=== PATIENT | male | born 1950 | race Native Hawaiian/Other Pacific Islander ===

== ENCOUNTER 2020-12-27 12:16 | Inpatient (IN) | payer OTHER, BC | END 2021-01-01 10:18 | disposition still patient (30) | LOC: PAVC 12:16 | PROVIDERS: ADMIT Internal Medicine; ATTEND Internal Medicine | DX: I21.4 Non-ST elevation (NSTEMI) myocardial infarction (principal); R13.12 Dysphagia, oropharyngeal phase; R48.8 Other symbolic dysfunctions; M62.81 Muscle weakness (generalized); R27.8 Other lack of coordination; Z74.1 Need for assistance with personal care; R26.81 Unsteadiness on feet | CPT/HCPCS: 87081 ==

== ENCOUNTER 2020-12-29 23:11 | Emergency (ER) | payer OTHER, BC ==
[~2020-12-29] VITALS: Ht 180.3 cm; Wt 89.4 kg
[2020-12-29 23:48] LABS: POTASSIUM 3.4 mmol/L (3.6-5.2)
[2020-12-29 23:51] LABS: PLATELET COUNT 354 K/uL (142-355)
[2020-12-29 23:59] LABS: PARTIAL THROMBOPLASTIN TIME 23.2 SECONDS (24.5-33.6)
[2020-12-30 01:18] VITALS: BP 111/78; TEMP 98.1
== END 2020-12-30 01:18 ==
LOC: ED 23:11
PROVIDERS: Hospitalist
DX: F03.91 Unspecified dementia, unspecified severity, with behavioral disturbance (principal)
CPT/HCPCS: 36415; 80053; 81000; 82550; 83880; 84484; 85027; 85610; 85730; 93005; 99283

== ENCOUNTER 2021-01-01 11:17 | Inpatient (IN) | payer OTHER, BC ==
[2021-01-08] MEDS ORDERED: ZINC220 MG PO (21:34)
[2021-01-08] MEDS ORDERED: FAMOTIDINE20 MG PO (21:35)
[2021-01-08] MEDS ORDERED: CLOPIDOGREL75 MG PO (21:36)
[2021-01-08] MEDS ORDERED: METF100038 PO (21:37)
[2021-01-08] MEDS ORDERED: MULTIVITAMI1 PO (21:37)
[2021-01-08] MEDS ORDERED: ASPIRIN81 M1 PO (21:38)
[2021-01-08] MEDS ORDERED: LIPITOR80 MG PO (21:39)
[2021-01-08] MEDS ORDERED: TAMSULOSIN0.4 MG PO (21:40)
[2021-01-08] MEDS ORDERED: VITAMIN C PO (21:43)
[2021-01-08] MEDS ORDERED: QUET25TA2 PO (21:46)
[2021-01-08] MEDS ORDERED: SENNOSIDES8.6 MG PO (21:47)
[2021-01-08] MEDS ORDERED: GERI-TUSSI100 MG/51 PO (21:48)
[2021-01-08] MEDS ORDERED: [UNRECOGNIZED DRUG - CODE] PO (21:49)
[2021-01-08] MEDS ORDERED: TROCHIBASE PO (21:50)
[2021-01-08] MEDS ORDERED: PAIN RELIEF325 MG PO (21:53)
[2021-01-08] MEDS ORDERED: ALBUTEROL SULFATE INH (21:56)
[2021-01-19] MEDS ORDERED: SILV1CRE TOP (10:08)
[2021-01-19] MEDS ORDERED: RISP0.25 PO (10:08)
[2021-01-19] MEDS ORDERED: ESCI10TA PO (10:08)
== END 2021-01-31 11:20 | disposition still patient (30) ==
LOC: PAVC 11:17
PROVIDERS: ADMIT Internal Medicine; ATTEND Internal Medicine
DX: I21.4 Non-ST elevation (NSTEMI) myocardial infarction (principal); R13.12 Dysphagia, oropharyngeal phase; R48.8 Other symbolic dysfunctions; M62.81 Muscle weakness (generalized); R27.8 Other lack of coordination; Z74.1 Need for assistance with personal care; R26.81 Unsteadiness on feet
CPT/HCPCS: 80053; 80061; 82306; 82607; 82728; 82746; 83036; 83540; 84153; 84443; 85027

== ENCOUNTER 2021-01-08 18:22 | Emergency (ER) | payer OTHER, BC ==
[~2021-01-08] VITALS: Ht 180.3 cm; Wt 86.7 kg
[2021-01-08 18:45] LABS: PLATELET COUNT 273 K/uL (142-355)
[2021-01-08 18:59] LABS: POTASSIUM 3.2 mmol/L (3.6-5.2)
[2021-01-08 20:45] VITALS: BP 129/88; TEMP 97.3
[2021-01-08] MEDS ORDERED: ZINC220 MG PO (21:34)
[2021-01-08] MEDS ORDERED: FAMOTIDINE20 MG PO (21:35)
[2021-01-08] MEDS ORDERED: CLOPIDOGREL75 MG PO (21:36)
[2021-01-08] MEDS ORDERED: METF100038 PO (21:37)
[2021-01-08] MEDS ORDERED: MULTIVITAMI1 PO (21:37)
[2021-01-08] MEDS ORDERED: ASPIRIN81 M1 PO (21:38)
[2021-01-08] MEDS ORDERED: LIPITOR80 MG PO (21:39)
[2021-01-08] MEDS ORDERED: TAMSULOSIN0.4 MG PO (21:40)
[2021-01-08] MEDS ORDERED: VITAMIN C PO (21:43)
[2021-01-08] MEDS ORDERED: QUET25TA2 PO (21:46)
[2021-01-08] MEDS ORDERED: SENNOSIDES8.6 MG PO (21:47)
[2021-01-08] MEDS ORDERED: GERI-TUSSI100 MG/51 PO (21:48)
[2021-01-08] MEDS ORDERED: [UNRECOGNIZED DRUG - CODE] PO (21:49)
[2021-01-08] MEDS ORDERED: TROCHIBASE PO (21:50)
[2021-01-08] MEDS ORDERED: PAIN RELIEF325 MG PO (21:53)
[2021-01-08] MEDS ORDERED: ALBUTEROL SULFATE INH (21:56)
== END 2021-01-08 20:52 | disposition still patient (30) ==
LOC: ED 18:22
PROVIDERS: Emergency Medicine
DX: G30.8 Other Alzheimer's disease (principal); F02.80 Dementia in other diseases classified elsewhere, unspecified severity, without behavioral disturbance, psychotic disturbance, mood disturbance, and anxiety; R45.1 Restlessness and agitation; E87.6 Hypokalemia; Z11.52 Encounter for screening for COVID-19; Z04.6 Encounter for general psychiatric examination, requested by authority; Z86.16 Personal history of COVID-19
CPT/HCPCS: 36415; 80053; 85027; 87635; 93005; 99285; U0003

== ENCOUNTER 2021-03-03 09:39 | Inpatient (IN) | payer OTHER, BC ==
[~2021-03-03 09:39] MED LIST: ALBUTEROL SULFATE INH; ASPIRIN81 M1 PO; CLOPIDOGREL75 MG PO; ESCI10TA PO; FAMOTIDINE20 MG PO; GERI-TUSSI100 MG/51 PO; LIPITOR80 MG PO; METF100038 PO; MULTIVITAMI1 PO; PAIN RELIEF325 MG PO; QUET25TA2 PO; RISP0.25 PO; SENNOSIDES8.6 MG PO; SILV1CRE TOP; TAMSULOSIN0.4 MG PO; TROCHIBASE PO; VITAMIN C PO; ZINC220 MG PO; [UNRECOGNIZED DRUG - CODE] PO
== END 2021-04-03 09:00 | disposition still patient (30) ==
LOC: PAVC 09:39
PROVIDERS: ADMIT Internal Medicine; ATTEND Internal Medicine
DX: I21.4 Non-ST elevation (NSTEMI) myocardial infarction (principal); R48.8 Other symbolic dysfunctions; M62.81 Muscle weakness (generalized); Z74.1 Need for assistance with personal care; R26.81 Unsteadiness on feet; G30.9 Alzheimer's disease, unspecified

== ENCOUNTER 2021-04-03 08:09 | Outpatient (CLI) | payer OTHER, BC | END 2021-04-03 19:25 | disposition home or self-care (01) | LOC: LAB 08:09 | PROVIDERS: ATTEND Internal Medicine | DX: E11.9 Type 2 diabetes mellitus without complications (principal) | CPT/HCPCS: 83036 ==

== ENCOUNTER 2021-04-03 13:39 | Inpatient (IN) | payer OTHER | END 2021-05-01 09:11 | disposition still patient (30) | LOC: PAVC 13:39 | PROVIDERS: ADMIT Internal Medicine; ATTEND Internal Medicine ==

== ENCOUNTER 2021-05-01 14:41 | Inpatient (IN) | payer OTHER | END 2021-06-01 14:15 | disposition still patient (30) | LOC: PAVC 14:41 | PROVIDERS: ADMIT Internal Medicine; ATTEND Internal Medicine ==

== ENCOUNTER 2021-06-01 15:37 | Inpatient (IN) | payer OTHER | END 2021-07-01 10:43 | disposition still patient (30) | LOC: PAVC 15:37 | PROVIDERS: ADMIT Internal Medicine; ATTEND Internal Medicine ==

== ENCOUNTER 2021-07-01 04:32 | Inpatient (IN) | payer OTHER | END 2021-08-01 10:03 | disposition still patient (30) | LOC: PAVC 04:32 | PROVIDERS: ADMIT Internal Medicine; ATTEND Internal Medicine ==

== ENCOUNTER 2021-07-02 08:12 | Outpatient (CLI) | payer OTHER, BC ==
[2021-07-02 08:35] LABS: PLATELET COUNT 278 K/uL (142-355)
[2021-07-02 09:08] LABS: POTASSIUM 4.4 mmol/L (3.6-5.2)
== END 2021-07-02 18:53 | disposition home or self-care (01) ==
LOC: LAB 08:12
PROVIDERS: ATTEND Internal Medicine
DX: I10 Essential (primary) hypertension (principal); I21.4 Non-ST elevation (NSTEMI) myocardial infarction; E11.9 Type 2 diabetes mellitus without complications
CPT/HCPCS: 80053; 82728; 83036; 83540; 85027

== ENCOUNTER 2021-07-17 15:36 | Outpatient (CLI) | payer OTHER, BC | END 2021-07-17 19:07 | disposition home or self-care (01) | LOC: CT 15:36 | PROVIDERS: ATTEND Internal Medicine | DX: H53.2 Diplopia (principal) ==

== ENCOUNTER 2021-08-01 16:30 | Inpatient (IN) | payer OTHER | END 2021-08-31 09:18 | disposition still patient (30) | LOC: PAVC 16:30 | PROVIDERS: ADMIT Internal Medicine; ATTEND Internal Medicine ==

== ENCOUNTER 2021-08-31 13:32 | Inpatient (IN) | payer OTHER | END 2021-10-01 09:13 | disposition still patient (30) | LOC: PAVC 13:32 | PROVIDERS: ADMIT Internal Medicine; ATTEND Internal Medicine ==

== ENCOUNTER 2021-10-01 07:13 | Outpatient (CLI) | payer OTHER | END 2021-10-01 18:53 | disposition home or self-care (01) | LOC: LAB 07:13 | PROVIDERS: ATTEND Internal Medicine | DX: E11.9 Type 2 diabetes mellitus without complications (principal) | CPT/HCPCS: 83036 ==

== ENCOUNTER 2021-10-01 11:09 | Inpatient (IN) | payer OTHER, BC ==
[2021-10-17] MEDS ORDERED: CEFD300C2 PO (18:51)
[2021-10-18] MEDS ORDERED: ZYPREXA ZYDI5 MG PO (18:48)
[2021-10-18] MEDS ORDERED: CLOP75TA2 PO (18:57)
[2021-10-18] MEDS ORDERED: METFORMIN HYD1000 MG PO (18:59)
[2021-10-18] MEDS ORDERED: ESCITALOPRAM10 MG PO (19:02)
[2021-10-18] MEDS ORDERED: MULTIVITAMI1 PO (19:05)
[2021-10-18] MEDS ORDERED: FAMO20TA4 PO (19:11)
[2021-10-18] MEDS ORDERED: LORA1TAB17 PO (19:14)
[2021-10-18] MEDS ORDERED: MILK OF MA400 MG/5 M PO (19:17)
[2021-10-18] MEDS ORDERED: ASPIRIN/ENTERIC81 MG PO (19:19)
[2021-10-18] MEDS ORDERED: LIPITOR80 MG PO (19:20)
[2021-10-18] MEDS ORDERED: BUMETANIDE1 MG PO (19:22)
[2021-10-21] MEDS ORDERED: CEFD300C2 PO (11:05)
[2021-10-22 09:05] LABS: POTASSIUM 3.5 mmol/L (3.6-5.2)
== END 2021-11-01 09:16 | disposition still patient (30) ==
LOC: PAVC 11:09
PROVIDERS: ADMIT Internal Medicine; ATTEND Internal Medicine
DX: N39.0 Urinary tract infection, site not specified (principal); M62.81 Muscle weakness (generalized); R26.81 Unsteadiness on feet; Z74.1 Need for assistance with personal care; R48.8 Other symbolic dysfunctions
CPT/HCPCS: 80048; 83880

== ENCOUNTER 2021-10-17 18:43 | Outpatient (CLI) | payer OTHER, BC ==
[2021-10-17] MEDS ORDERED: CEFD300C2 PO (18:51)
[2021-10-17 19:15] LABS: PLATELET COUNT 265 K/uL (142-355)
[2021-10-17 19:25] LABS: POTASSIUM 4.6 mmol/L (3.6-5.2)
[2021-10-18] MEDS ORDERED: ZYPREXA ZYDI5 MG PO (18:48)
[2021-10-18] MEDS ORDERED: CLOP75TA2 PO (18:57)
[2021-10-18] MEDS ORDERED: METFORMIN HYD1000 MG PO (18:59)
[2021-10-18] MEDS ORDERED: ESCITALOPRAM10 MG PO (19:02)
[2021-10-18] MEDS ORDERED: MULTIVITAMI1 PO (19:05)
[2021-10-18] MEDS ORDERED: FAMO20TA4 PO (19:11)
[2021-10-18] MEDS ORDERED: LORA1TAB17 PO (19:14)
[2021-10-18] MEDS ORDERED: MILK OF MA400 MG/5 M PO (19:17)
[2021-10-18] MEDS ORDERED: ASPIRIN/ENTERIC81 MG PO (19:19)
[2021-10-18] MEDS ORDERED: LIPITOR80 MG PO (19:20)
[2021-10-18] MEDS ORDERED: BUMETANIDE1 MG PO (19:22)
== END 2021-10-17 20:04 | disposition home or self-care (01) ==
LOC: LAB 18:43
PROVIDERS: ATTEND Internal Medicine Endocrinology, Diabetes & Metabolism
DX: I63.9 Cerebral infarction, unspecified (principal); I21.4 Non-ST elevation (NSTEMI) myocardial infarction; R41.82 Altered mental status, unspecified; R60.0 Localized edema
CPT/HCPCS: 80053; 83880; 85027; 85379

== ENCOUNTER 2021-10-18 11:07 | Inpatient (IN) | payer OTHER, BC ==
[2021-10-18] VITALS (10 sets, daily range): BP systolic 94–143; BP diastolic 42–93; TEMP 97.3–99; Ht 177.8 cm; Wt 83.2 kg
[~2021-10-18] VITALS: Ht 177.8 cm; Wt 83.2 kg
[~2021-10-18 11:07] MED LIST changes: +CEFD300C2 PO
[2021-10-18 12:15] LABS: PLATELET COUNT 273 K/uL (142-355)
[2021-10-18 12:25] LABS: POTASSIUM 4.1 mmol/L (3.6-5.2)
[2021-10-18] MEDS ORDERED: ZYPREXA ZYDI5 MG PO (18:48)
[2021-10-18] MEDS ORDERED: CLOP75TA2 PO (18:57)
[2021-10-18] MEDS ORDERED: METFORMIN HYD1000 MG PO (18:59)
[2021-10-18] MEDS ORDERED: ESCITALOPRAM10 MG PO (19:02)
[2021-10-18] MEDS ORDERED: MULTIVITAMI1 PO (19:05)
[2021-10-18] MEDS ORDERED: FAMO20TA4 PO (19:11)
[2021-10-18] MEDS ORDERED: LORA1TAB17 PO (19:14)
[2021-10-18] MEDS ORDERED: MILK OF MA400 MG/5 M PO (19:17)
[2021-10-18] MEDS ORDERED: ASPIRIN/ENTERIC81 MG PO (19:19)
[2021-10-18] MEDS ORDERED: LIPITOR80 MG PO (19:20)
[2021-10-18] MEDS ORDERED: BUMETANIDE1 MG PO (19:22)
[2021-10-19 03:10] VITALS: BP 135/97; TEMP 98.3
[2021-10-19 04:45] LABS: PLATELET COUNT 263 K/uL (142-355)
[2021-10-19 05:07] LABS: POTASSIUM 3.6 mmol/L (3.6-5.2)
[2021-10-19 07:10] VITALS: BP 122/67; TEMP 98.5
[2021-10-19 11:10] VITALS: BP 121/70; TEMP 97.6
[2021-10-19 15:10] VITALS: BP 101/53; TEMP 98.9
[2021-10-19 20:00] VITALS: BP 105/67; TEMP 98.7
[2021-10-20] VITALS: BP 103/61; TEMP 99.3
[2021-10-20 03:58] VITALS: BP 123/76; TEMP 98.8
[2021-10-20 08:00] VITALS: BP 123/73; BP 167/57; TEMP 97.9; TEMP 98.4
[2021-10-20 12:00] VITALS: BP 130/69; TEMP 97.9
[2021-10-20 16:00] VITALS: BP 97/60; TEMP 97.9
[2021-10-20 20:00] VITALS: BP 113/70; TEMP 97.4
[2021-10-21] VITALS: BP 130/63; TEMP 97.5
[2021-10-21 04:00] VITALS: BP 126/79; TEMP 98.3
[2021-10-21 04:51] LABS: PLATELET COUNT 298 K/uL (142-355)
[2021-10-21 05:15] LABS: POTASSIUM 3.3 mmol/L (3.6-5.2)
[2021-10-21 08:00] VITALS: BP 126/80; TEMP 97.6
[2021-10-21] MEDS ORDERED: CEFD300C2 PO (11:05)
== END 2021-10-21 11:15 | DRG 689 ==
LOC: ED 11:07 → MED/SURG 14:30 → ED 15:26 → MED/SURG 15:26
PROVIDERS: ADMIT Emergency Medicine; ATTEND Internal Medicine
DX: N39.0 Urinary tract infection, site not specified (principal); G93.41 Metabolic encephalopathy; I25.110 Atherosclerotic heart disease of native coronary artery with unstable angina pectoris; G30.8 Other Alzheimer's disease; E78.49 Other hyperlipidemia; K21.9 Gastro-esophageal reflux disease without esophagitis; B96.20 Unspecified Escherichia coli [E. coli] as the cause of diseases classified elsewhere; Z86.73 Personal history of transient ischemic attack (TIA), and cerebral infarction without residual deficits; I25.2 Old myocardial infarction; Z86.16 Personal history of COVID-19; R62.7 Adult failure to thrive; R53.1 Weakness; I11.0 Hypertensive heart disease with heart failure; I50.9 Heart failure, unspecified; E11.65 Type 2 diabetes mellitus with hyperglycemia; Z79.84 Long term (current) use of oral hypoglycemic drugs
CPT/HCPCS: 36415; 80053; 82948; 83735; 83880; 84484; 85027; 87635; 93005; 96372; 96376; 99284; J0696; J1940; U0003

== ENCOUNTER 2021-11-26 17:30 | Outpatient (CLI) | payer OTHER, BC ==
[~2021-11-26 17:30] MED LIST changes: +ASPIRIN/ENTERIC81 MG PO; +BUMETANIDE1 MG PO; +CLOP75TA2 PO; +ESCITALOPRAM10 MG PO; +FAMO20TA4 PO; +LORA1TAB17 PO; +METFORMIN HYD1000 MG PO; +MILK OF MA400 MG/5 M PO; +ZYPREXA ZYDI5 MG PO
== END 2021-11-26 19:57 | disposition home or self-care (01) ==
LOC: LAB 17:30
PROVIDERS: ATTEND Internal Medicine Endocrinology, Diabetes & Metabolism
DX: R35.0 Frequency of micturition (principal)
CPT/HCPCS: 81000

== ENCOUNTER 2021-12-01 15:02 | Inpatient (IN) | payer OTHER | END 2022-01-01 10:25 | disposition still patient (30) | LOC: PAVC 15:02 | PROVIDERS: ADMIT Internal Medicine Endocrinology, Diabetes & Metabolism; ATTEND Internal Medicine Endocrinology, Diabetes & Metabolism ==

== ENCOUNTER 2022-01-01 10:31 | Inpatient (IN) | payer OTHER | END 2022-01-31 12:19 | disposition still patient (30) | LOC: PAVC 10:31 | PROVIDERS: ADMIT Internal Medicine Endocrinology, Diabetes & Metabolism; ATTEND Internal Medicine Endocrinology, Diabetes & Metabolism ==

== ENCOUNTER → 2022-01-01 | Outpatient (CLI) | payer OTHER, BC ==
[2022-01-01 09:23] LABS: PLATELET COUNT 229 K/uL (142-355)
[2022-01-01 10:14] LABS: POTASSIUM 3.6 mmol/L (3.6-5.2)
== END ==
LOC: LAB 08:48
PROVIDERS: ATTEND Internal Medicine Endocrinology, Diabetes & Metabolism
DX: E11.9 Type 2 diabetes mellitus without complications (principal); I10 Essential (primary) hypertension; E78.49 Other hyperlipidemia
CPT/HCPCS: 80053; 82728; 83036; 83540; 85027

== ENCOUNTER 2022-01-04 14:49 | Emergency (ER) | payer OTHER ==
[~2022-01-04] VITALS: Ht 177.8 cm; Wt 83.0 kg
[2022-01-04 15:02] VITALS: TEMP 100.1
[2022-01-04 15:11] LABS: PLATELET COUNT 227 K/uL (142-355)
[2022-01-04 15:21] LABS: POTASSIUM 4.1 mmol/L (3.6-5.2)
[2022-01-04 17:00] VITALS: BP 123/73
== END 2022-01-04 19:53 ==
LOC: ED 15:02
PROVIDERS: Family Medicine
DX: N39.0 Urinary tract infection, site not specified (principal); G45.9 Transient cerebral ischemic attack, unspecified; F03.90 Unspecified dementia, unspecified severity, without behavioral disturbance, psychotic disturbance, mood disturbance, and anxiety; Z20.822 Contact with and (suspected) exposure to COVID-19
CPT/HCPCS: 36415; 80053; 81002; 82550; 84484; 85027; 85610; 87040; 87502; 87635; 93005; 96365; 99284; J0696; U0003

== ENCOUNTER 2022-01-04 20:48 | Outpatient (CLI) | payer OTHER | END 2022-01-04 21:14 | disposition home or self-care (01) | LOC: LAB 20:48 | PROVIDERS: ATTEND Internal Medicine Endocrinology, Diabetes & Metabolism | DX: N39.0 Urinary tract infection, site not specified (principal) | CPT/HCPCS: 87086; 87088 ==

== ENCOUNTER 2022-01-10 18:37 | Outpatient (CLI) | payer OTHER | END 2022-01-10 19:52 | disposition home or self-care (01) | LOC: LAB 18:37 | PROVIDERS: ATTEND Internal Medicine Endocrinology, Diabetes & Metabolism | DX: R35.0 Frequency of micturition (principal) | CPT/HCPCS: 81000 ==

== ENCOUNTER 2022-01-31 12:25 | Inpatient (IN) | payer OTHER | END 2022-03-03 10:57 | disposition still patient (30) | LOC: PAVC 12:25 | PROVIDERS: ADMIT Internal Medicine Endocrinology, Diabetes & Metabolism; ATTEND Internal Medicine Endocrinology, Diabetes & Metabolism ==

== ENCOUNTER 2022-03-03 14:35 | Inpatient (IN) | payer OTHER | END 2022-04-03 09:29 | disposition still patient (30) | LOC: PAVC 14:35 | PROVIDERS: ADMIT Internal Medicine Endocrinology, Diabetes & Metabolism; ATTEND Internal Medicine Endocrinology, Diabetes & Metabolism ==

== ENCOUNTER 2022-04-03 12:38 | Inpatient (IN) | payer OTHER | END 2022-05-01 15:10 | disposition still patient (30) | LOC: PAVC 12:38 | PROVIDERS: ADMIT Internal Medicine Endocrinology, Diabetes & Metabolism; ATTEND Internal Medicine Endocrinology, Diabetes & Metabolism ==

== ENCOUNTER 2022-04-08 07:55 | Outpatient (CLI) | payer OTHER, BC | END 2022-04-08 19:27 | disposition home or self-care (01) | LOC: LAB 07:55 | PROVIDERS: ATTEND Internal Medicine Endocrinology, Diabetes & Metabolism | DX: E11.9 Type 2 diabetes mellitus without complications (principal) | CPT/HCPCS: 83036 ==

== ENCOUNTER 2022-05-01 15:46 | Inpatient (IN) | payer OTHER | END 2022-06-01 12:49 | disposition still patient (30) | LOC: PAVC 15:46 | PROVIDERS: ADMIT Internal Medicine Endocrinology, Diabetes & Metabolism; ATTEND Internal Medicine Endocrinology, Diabetes & Metabolism ==

== ENCOUNTER → 2022-05-30 | Outpatient (CLI) | payer OTHER, BC | LOC: LAB 10:58 | PROVIDERS: ATTEND Internal Medicine Endocrinology, Diabetes & Metabolism | DX: R41.82 Altered mental status, unspecified (principal) | CPT/HCPCS: 81000 ==

== ENCOUNTER 2022-06-01 13:01 | Inpatient (IN) | payer OTHER | END 2022-07-01 16:40 | disposition still patient (30) | LOC: PAVC 13:01 | PROVIDERS: ADMIT Internal Medicine Endocrinology, Diabetes & Metabolism; ATTEND Internal Medicine Endocrinology, Diabetes & Metabolism ==

== ENCOUNTER 2022-07-01 08:40 | Outpatient (CLI) | payer OTHER, BC ==
[2022-07-01 09:05] LABS: PLATELET COUNT 257 K/uL (142-355)
[2022-07-01 09:29] LABS: POTASSIUM 3.8 mmol/L (3.6-5.2)
== END 2022-07-01 19:37 | disposition home or self-care (01) ==
LOC: LAB 08:40
PROVIDERS: ATTEND Internal Medicine Endocrinology, Diabetes & Metabolism
DX: I11.0 Hypertensive heart disease with heart failure (principal); I50.9 Heart failure, unspecified; E11.9 Type 2 diabetes mellitus without complications; I25.10 Atherosclerotic heart disease of native coronary artery without angina pectoris
CPT/HCPCS: 80053; 82728; 83036; 83540; 85027

== ENCOUNTER 2022-07-01 17:12 | Inpatient (IN) | payer OTHER | END 2022-08-01 11:56 | disposition still patient (30) | LOC: PAVC 17:12 | PROVIDERS: ADMIT Internal Medicine Endocrinology, Diabetes & Metabolism; ATTEND Internal Medicine Endocrinology, Diabetes & Metabolism ==

== ENCOUNTER 2022-08-01 12:05 | Inpatient (IN) | payer OTHER | END 2022-08-31 17:40 | disposition still patient (30) | LOC: PAVC 12:05 | PROVIDERS: ADMIT Internal Medicine Endocrinology, Diabetes & Metabolism; ATTEND Internal Medicine Endocrinology, Diabetes & Metabolism ==

== ENCOUNTER 2022-08-10 20:54 | Emergency (ER) | payer OTHER ==
[~2022-08-10] VITALS: Ht 177.8 cm; Wt 88.9 kg
[2022-08-10 21:46] VITALS: BP 115/70; TEMP 98.2
== END 2022-08-10 21:46 | disposition home or self-care (01) ==
LOC: ED 20:54
PROC: 0HQ1XZZ Repair Face Skin, External Approach (ICD-10-PCS; principal; 2022-08-10)
DX: S01.511A Laceration without foreign body of lip, initial encounter (principal); W01.0XXA Fall on same level from slipping, tripping and stumbling without subsequent striking against object, initial encounter
CPT/HCPCS: 99283

== ENCOUNTER 2022-10-01 13:00 | Outpatient (CLI) | payer OTHER, BC | END 2022-10-01 20:26 | disposition home or self-care (01) | LOC: LAB 13:00 | PROVIDERS: ATTEND Internal Medicine | DX: E11.9 Type 2 diabetes mellitus without complications (principal) | CPT/HCPCS: 36415; 83036 ==